=== PATIENT | female | born 1945 | race African-American/Black ===

== ENCOUNTER 2017-10-19 19:33 | Emergency (ER) | payer OTHER, MEDICAID ==
[~2017-10-19] VITALS: Ht 162.6 cm; Wt 114.0 kg
[2017-10-19 22:14] LABS: BASOPHILS % 0.5 % (0.0-2.0); EOSINOPHILS % 1.5 % (0.0-5.0); HEMATOCRIT. 33.4 % (36.0-48.0); HEMOGLOBIN. 10.4 g/dL (12.0-16.0); LYMPHOCYTES % 21.4 % (20.0-50.0); MEAN CORPUSCULAR HEMOGLOBIN 22.9 pg (28.0-32.0); MEAN CORPUSCULAR VOLUME 73.6 fL (81.0-99.0); MONOCYTES % 7.4 % (2.0-8.0); NEUTROPHILS % 69.2 % (40.0-76.0); PLATELET 271 x1000/uL (130-400); RED BLOOD CELL COUNT 4.54 mill/uL (4.2-5.4); RED CELL DISTRIBUTION WIDTH 16.2 % (11.6-14.6)
[2017-10-19 22:17] LABS: CHLORIDE 103 mEq/L (98-107)
[2017-10-19 22:23] LABS: PARTIAL THROMBOPLASTIN TIME 27.3 sec (23.4-31.0); PROTHROMBIN TIME 10.5 sec (9.4-11.6)
[2017-10-19] MEDS ORDERED: MORPHINE SULFATE 4 MG/ML CPJ (NOT FOR IM USE) IV STA (23:11)
[2017-10-19] MEDS ORDERED: ONDANSETRON HCL 4MG/2ML VIAL IV STA (23:11)
[2017-10-19] MEDS ORDERED: DEXAMETHASONE 10 MG/ML VIAL IV ONE (23:15)
[2017-10-20 03:58] VITALS: BP 156/95
== END 2017-10-20 04:08 | disposition home or self-care (01) ==
LOC: ER 20:00
DX: K11.20 Sialoadenitis, unspecified (principal); R40.4 Transient alteration of awareness; I11.9 Hypertensive heart disease without heart failure; E11.9 Type 2 diabetes mellitus without complications
CPT/HCPCS: 36415; 70450; 70490; 71045; 80053; 83880; 84484; 85025; 85610; 85730; 93005; 96374; 96375; 99285; J1100; J2270; J2405